=== PATIENT | female | born 1965 ===

== ENCOUNTER 2017-07-25 18:03 | Emergency (ER) | payer BC ==
[~2017-07-25] VITALS: Ht 165.1 cm; Wt 56.7 kg
--- NOTE | 2017-07-25 18:29 | ER.PDOC ---
General Chief Complaint: Altered Mental Status Stated Complaint: GENERAL COMPLAINT TRAVEL OUT OF US: No Time seen by MD: 06:15 Source: patient, family Exam Limitations: no limitations History of Present Illness Initial Comments Patient seen by computer engineer for post op checkup. Had routine lab drawn and was called and told her potassium was high and she needed to have it rechecked. Only way to have done was to come to ED Timing/Duration: unsure Vital Signs Vital Signs Date Time Temp Pulse Resp B/P (MAP) Pulse Ox O2 Delivery O2 Flow Rate FiO2 07/25/17 18:24 98.7 72 16 98 Room Air Past Medical History Medical History: coronary artery disease, hypertension Surgical History: coronary bypass surgery Family History Significant Family History: no pertinent family hx Social History Smoking: non-smoker Drug Use: none Reviewed Nursing Reviewed: Vital Signs, Abn. Noted, Nursing Assessment Review of Systems Constitutional: denies chills, denies diaphoresis, denies fever, denies malaise , denies weakness Respiratory: denies cough, denies orthopnea, denies shortness of breath Cardiovascular: denies chest pain, denies edema, denies palpitations Gastrointestinal: denies abdominal pain, denies nausea, denies vomiting Genitourinary: denies discharge, denies dysuria, denies frequency, denies hematuria Musculoskeletal: denies back pain Psychiatric/Neurological: denies anxiety, denies depressed Hematologic/Lymphatic: denies anemia All Other Systems: Reviewed and Negative Physical Exam General Appearance: No Apparent Distress, WD/WN Neck: Non-Tender, Full Range of Motion, Supple Respiratory: lungs clear, normal breath sounds, no respiratory distress CVS: reg rate & rhythm, no murmur, pulses nml, nml capillary refill Gastrointestinal: Normal Bowel Sounds, No Organomegaly Extremities: Normal Range of Motion, Non-Tender, Normal Inspection, No Pedal Edema Neurologic/Psychiatric: core maker II-XII NML as Tested Skin: Normal Color, Warm/Dry Results/Orders Results/Orders Laboratory Tests Test 07/25/17 18:38 Potassium Level 5.2 mmol/L (3.6-5.2) Progress Progress No change. Potassium lever 5.2 upper limits of nl. discussed with . Will have him hold oral potassium at home Course Vitals & review Data Vital Sign - Last 24 Hours 07/25/17 07/25/17 07/25/17 18:21 18:21 18:24 Temp 98.7 98.1 98.7 Pulse 72 75 72 Resp 16 16 16 Pulse Ox 98 98 O2 Delivery Room Air Room Air Laboratory Tests Test 07/25/17 18:38 Potassium Level 5.2 mmol/L Departure Time of Disposition: 19:02 Disposition: 01 HOME, SELF-CARE Impression: Primary Impression: Acute hyperkalemia Condition: Stable Patient Instructions: Hyperkalemia, [id number] Referrals: PCP,UNKNOWN (PCP) PRIMARY CARE PROVIDER Additional Instructions: Call your regular doctor to have outpatient lab redraw of your potassium at the end of the week. Do not take your oral potassium until recheck. Continue to take your furosemide Duration or Time Spent with Pa: 15 MONSERRAT VILLARREAL MD Jul 25, 2017 18:29
[2017-07-25 19:15] VITALS: BP 154/77
[2017-07-25 19:22] VITALS: BP 154/77
== END 2017-07-25 19:10 | disposition home or self-care (01) ==
LOC: ER 18:03
DX: E87.5 Hyperkalemia (principal); I10 Essential (primary) hypertension; I25.810 Atherosclerosis of coronary artery bypass graft(s) without angina pectoris; Z95.1 Presence of aortocoronary bypass graft
CPT/HCPCS: 36415; 84132; 99283